=== PATIENT | female | born 1970 | race American Indian/Alaskan Native ===

== ENCOUNTER 2016-05-27 09:18 | Inpatient (IN) | payer MEDICAID ==
[2016-05-27 09:18] VITALS: BMI 45.1
--- NOTE | 2016-05-27 10:19 | ED PDOC ---
HPI: Psych/Substance Abuse Time Seen by Provider: 05/27/16 09:27 Chief Complaint (Nursing): Abdominal Pain Chief Complaint (Provider): Abd pain History/Exam Limitations: clinical condition, intoxication Current Symptoms Are (Timing): Still Present Modifying Factor(s): Other (Heroin) Additional Complaint(s): 45-year-old female, PMHx includes Hypertension (non-compliant w/ meds), brought to the emergency department by EMS with complaints of possible intoxication. Patient states she was taking the bus, and when she reached her destination, she called 911 due to nausea and non-bloody vomiting. Patient notes that she used 4 bags of Heroin last night. In ED, patient complaining of a headache frontal and generalized abdominal pain with vomiting. States she had similar pain last month, but unable to verbalize why she had it. Denies chest pain or back pain. All other Hx limited secondary to intoxication and drowsiness. Past Medical History Reviewed: Historical Data, Nursing Documentation, Vital Signs Vital Signs: Last Vital Signs Temp 98.2 F 05/27/16 09:21 Pulse 76 05/27/16 09:21 Resp 20 05/27/16 09:21 BP 184/110 H 05/27/16 09:21 Pulse Ox 100 05/27/16 09:21 - Medical History PMH: HTN (not taking meds) Denies: Depression - Family History Family History: States: Unknown Family Hx - Home Medications Home Medications: Ambulatory Orders Medication Instructions Recorded Mometasone/Formoterol [Dulera 200 2 puff IH Q12H 05/27/16 Mcg/5 Mcg Inhaler] - Allergies Allergies/Adverse Reactions: Allergies Allergy/AdvReac Type Severity Reaction Status Date / Time No Known Allergies Allergy Verified 01/29/12 10:03 Review of Systems Review Of Systems: ROS cannot be obtained secondary to pt's inabilty to answer questions. Gastrointestinal: Positive for: Nausea, Vomiting, Abdominal Pain Neurological: Positive for: Headache Physical Exam - Reviewed Nursing Documentation Reviewed: Yes Vital Signs Reviewed: Yes - Physical Exam Appears: Positive for: Uncomfortable Head Exam: Positive for: ATRAUMATIC, NORMOCEPHALIC Skin: Positive for: Warm, Dry. Negative for: Rash Eye Exam: Positive for: EOMI, PERRL ENT: Positive for: Normal ENT Inspection. Negative for: Nasal Congestion Neck: Positive for: Normal, Painless ROM, Supple Cardiovascular/Chest: Positive for: Regular Rate, Rhythm, Other (NO GROSS TRAUMA ) Respiratory: Positive for: Normal Breath Sounds. Negative for: Accessory Muscle Use Gastrointestinal/Abdominal: Positive for: Soft, Tenderness (Diffuse). Negative for: Guarding, Rebound Back: Positive for: Normal Inspection. Negative for: L CVA Tenderness, R CVA Tenderness Extremity: Positive for: Normal ROM (SPONTANEOUSLY MOVING ALL EXT). 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 RESPONSIVE TO VERBAL STIMULI AND CHEST RUB. Limited as pt. does not comply with all questions and commands.). Negative for: Motor/Sensory Deficits (4/5 STRENGTH) - Laboratory Results Result Diagrams: 05/27/16 10:36 05/27/16 10:36 Interpretation Of Abn Labs: opiates and coccaine - ECG ECG: Positive for: Interpreted By Me, Viewed By Me ECG Rhythm: Positive for: Normal QRS, Normal ST Segment, Sinus Rhythm O2 Sat by Pulse Oximetry: 100 Pulse Ox Interpretation: Normal - Radiology X-Ray: Read By Radiologist X-Ray Interpretation: No Acute Disease - CT Scan/US ct Other Rad Studies (CT/US): Read By Radiologist Other Rad Interpretation: no acute bleed - Progress ED Course And Treament: 1432: Stable. AAOx3. BP remains elevated. Possibly from coccaine use and untreated htn. Will start nicardipine considering coccaine in system. Pt. pain is better. Has no headaches. 1458: Spoke with Dr. Muñoz. CT is unclear in abd/pelvis. Recommends repeat ct with no contract to better evaluate. Spoke with ICU attending, will admit ICU for hypertensive emergency. 1506: Stable. Spoke with Dr. Amezcua. Will admit ICU. - Critical Care Total Time (In Min): 30 Documented Critical Care: Time excludes all time spent performint seperately billable procedures Medical Decision Making Medical Decision Making: Plan * VBG * CT Head * EKG * EtOH Serum, CMP, UDS, Lipase, Trop * CBC, PTT, PT * Chest X-Ray * Reglan, Zofran * POC * Reassess and Disposition Scribe Attestation: Documented by Laz Story, acting as a scribe for Tim Ortiz MD Provider Scribe Attestation: All medical record entries made by the Scribe were at my direction and personally dictated by me. I have reviewed the chart and agree that the record accurately reflects my personal performance of the history, physical exam, medical decision making, and the department course for this patient. I have also personally directed, reviewed, and agree with the discharge instructions and disposition. Disposition - Clinical Impression Clinical Impression: Hypertensive emergency, Abdominal pain, Heroin abuse, Cocaine abuse - Patient ED Disposition Is Patient to be Admitted: Yes Counseled Patient/Family Regarding: Studies Performed, Diagnosis - Disposition Disposition Time: 15:06 Condition: SERIOUS - Pt Status Changed To: Hospital Disposition Of: Inpatient - Admit Certification Admit to Inpatient:: After my assessment, the patient will require hospitalization for at least two midnights. This is because of the severity of symptoms shown, intensity of services needed, and/or the medical risk in this patient being treated as an outpatient. - POA Present On Arrival: None
[2016-05-27 10:40] LABS: BASO % 0.3 % (0.0-2.0); EOS # 0.2 K/uL (0.0-0.7); EOS % 1.6 % (0.0-4.0); HEMATOCRIT 41.5 % (34.0-47.0); LYMPH # 0.8 K/uL (1.0-4.3); LYMPH % 7.5 % (20.0-40.0); MEAN CELL VOLUME 83.1 fl (81.0-99.0); MEAN CORPUSCULAR HEMOGLOBIN 27.2 pg (27.0-31.0); MEAN CORPUSCULAR HGB CONC 32.8 g/dL (33.0-37.0); MEAN PLATELET VOLUME 9.1 fl (7.2-11.7); MONO # 0.6 K/uL (0.0-0.8); MONO % 5.6 % (0.0-10.0); PLATELET COUNT 240 K/uL (130-400); WHITE BLOOD COUNT 10.6 K/uL (4.8-10.8)
[2016-05-27 10:54] LABS: ALB/GLOB RATIO 1.1 (1.0-2.1); ALCOHOL SERUM < 10 mg/dl (0-10); ALKALINE PHOSPHATASE 97 U/L (38-126); ALT/SGPT 40 U/L (9-52); AST/SGOT 33 U/L (14-36); BILIRUBIN,TOTAL 2.2 mg/dl (0.2-1.3); BLOOD UREA NITROGEN 15 mg/dl (7-17); CALCIUM 10.1 mg/dL (8.4-10.2); CARBON DIOXIDE 25 mmol/L (22-30); CHLORIDE 104 mmol/L (98-107); GFR AFRICAN-AMERICAN > 60; GLUCOSE,RANDOM 107 mg/dL (65-105); LIPASE 31 U/L (23-300); POTASSIUM 3.9 MMOL/L (3.6-5.0); SODIUM 145 mmol/l (132-148); TOTAL PROTEIN 8.5 G/DL (6.3-8.2)
[2016-05-27 11:07] LABS: PARTIAL THROMBOPLASTIN TIME 25.7 SECONDS (23.3-32.5)
[2016-05-27 11:34] LABS: VENOUS BLOOD GAS BASE EXCESS 2.1 mmol/L (0.0-2.0); VENOUS BLOOD GAS PCO2 52 mmHg (40-60); VENOUS BLOOD PH 7.35 (7.32-7.43)
--- NOTE | 2016-05-27 11:35 | CT ---
PROCEDURE: CT HEAD WITHOUT CONTRAST. HISTORY: headache COMPARISON: None available. TECHNIQUE: Axial computed tomography images were obtained through the head/brain without intravenous contrast. Radiation dose: Total exam DLP = 845.80 mGy-cm. This CT exam was performed using one or more of the following dose reduction techniques: Automated exposure control, adjustment of the mA and/or kV according to patient size, and/or use of iterative reconstruction technique. FINDINGS: HEMORRHAGE: No intracranial hemorrhage. BRAIN: No mass effect or edema. There is generalize sulcal effacement. There is preservation of normal sargent-white matter differentiation. There is no evidence of acute infarct. There is mild cerebellar tonsillar ectopia. There is partial empty sella. These findings may be seen in association with idiopathic intracranial hypertension. Please correlate. Recommend further evaluation with magnetic resonance imaging. VENTRICLES: Mildly narrowed. No midline shift. CALVARIUM: Unremarkable. PARANASAL SINUSES: Unremarkable as visualized. No significant inflammatory changes. MASTOID AIR CELLS: Unremarkable as visualized. No inflammatory changes. OTHER FINDINGS: None. IMPRESSION: No intracranial mass. Possible idiopathic intracranial hypertension. Recommend further evaluation with magnetic resonance imaging.
[2016-05-27] MEDS ORDERED: Naloxone 0.4 mg/ml Inj (Adult) ONE (11:41)
[2016-05-27] MEDS ORDERED: Naloxone 0.4 mg/ml Inj (Adult) IVP ONE (11:43)
[2016-05-27] MEDS ORDERED: Gadodiamide 287 MG/ML VIAL (15ML) IV ONE (12:23)
[2016-05-27 12:28] LABS: EOSINOPHIL 1 % (0-7); NEUTROPHIL 83 % (42-75); REACTIVE LYMPHOCYTES 1 % (0-0); TOTAL CELLS COUNTED 100
--- NOTE | 2016-05-27 13:34 | RAD ---
HISTORY: pain COMPARISON: No prior. FINDINGS: LUNGS: No active pulmonary disease. PLEURA: No significant pleural effusion identified, no pneumothorax apparent. CARDIOVASCULAR: Normal. OSSEOUS STRUCTURES: No significant abnormalities. VISUALIZED UPPER ABDOMEN: Normal. OTHER FINDINGS: None. IMPRESSION: No active disease.
[2016-05-27] MEDS ORDERED: Iohexol 300 100 ML IJ ONE (13:40)
[2016-05-27] MEDS ORDERED: Sodium Chloride 0.9% 50 ML IV ONE (13:40)
[2016-05-27] MEDS ORDERED: Nicardipine 20 MG/200 ML 200 ML IV ONE ×2 (14:23→20:44)
--- NOTE | 2016-05-27 14:36 | CT ---
PROCEDURE: CT Abdomen and Pelvis with contrast HISTORY: abd pain COMPARISON: None. TECHNIQUE: Contrast dose: 95 cc Omnipaque 300. Radiation dose: Total exam DLP = 353.89 mGy-cm. This CT exam was performed using one or more of the following dose reduction techniques: Automated exposure control, adjustment of the mA and/or kV according to patient size, and/or use of iterative reconstruction technique. FINDINGS: LOWER THORAX: Small hiatal hernia. LIVER: Unremarkable. No gross lesion or ductal dilatation. GALLBLADDER AND BILE DUCTS: Unremarkable. PANCREAS: Unremarkable. No gross lesion or ductal dilatation. SPLEEN: Unremarkable. ADRENALS: Unremarkable. No mass. KIDNEYS AND URETERS: Atrophic right kidney. Compensatory hypertrophy left kidney. Incidental finding(s): VASCULATURE: Unremarkable. No aortic aneurysm. BOWEL: Constipation without fecal impaction or obstruction. APPENDIX: A normal appendix is not visualized. PERITONEUM: Unremarkable. No free fluid. No free air. LYMPH NODES: Retroperitoneal adenopathy. This is primarily pericaval chains. The right renal artery is displaced posteriorly and the left renal vein is draped over a retroperitoneal mass. The mass is indistinguishable from the pancreatic head. Limitations of the current examination: Absence of oral contrast and thin body habitus and a paucity of retroperitoneal fat preclude optimal assessment. BLADDER: Markedly distended urinary bladder without focal abnormality. REPRODUCTIVE: Unremarkable. BONES: No acute fracture. OTHER FINDINGS: None. IMPRESSION: Retroperitoneal adenopathy. The finding is difficult to characterize with a greater degree of clarity based on absence of oral contrast, thin body habitus. Follow-up recommendation repeat CT scan with oral and intravenous contrast Additional benign and/or incidental findings described above.
--- NOTE | 2016-05-27 15:48 | CT ---
PROCEDURE: CT Abdomen and Pelvis without intravenous contrast HISTORY: R/O stone COMPARISON: None. TECHNIQUE: Without contrast.. Contrast Dose: 0 Radiation dose: Total exam DLP = 436.76 mGy-cm. This CT exam was performed using one or more of the following dose reduction techniques: Automated exposure control, adjustment of the mA and/or kV according to patient size, and/or use of iterative reconstruction technique. Please note that this examination was performed after a delay due to the fact that prior examination was, despite proper timing, performed during the arterial phase of enhancement. This, in addition to absent oral contrast and retroperitoneal fat rendered the examination limited. An attempt at repeat examination was performed to take advantage of residual intravenous contrast. However, the contrast material appears almost entirely excreted into the urinary collecting system at the time of this repeat examination. FINDINGS: THE CURRENT EXAMINATION IS GROSSLY LIMITED. EVALUATION OF THE URINARY COLLECTING SYSTEM WITH EXCRETED CONTRAST MATERIAL DEMONSTRATES BLUNTING OF THE RIGHT RENAL CALICES. THIS IS SEEN IN CONJUNCTION WITH RIGHT RENAL ATROPHY. THERE IS A EXCRETION OF CONTRAST MATERIAL INTO THE RIGHT URETER WITHOUT EVIDENT OBSTRUCTION. THE LEFT RENAL COLLECTING SYSTEM IS UNREMARKABLE.: No significant additional information is available from the current examination due to the limitations described above. A repeat CT with intravenous and oral contrast is advised after 24 are delay following the initial contrast-enhanced CT examination. IMPRESSION: Grossly limited examination. Recommend repeat CT with intravenous and oral contrast administration following 24 hour delay.
[2016-05-27] MEDS ORDERED: Potassium Ch 20mEq in D5-1/2NS 1,000 ML IV SCH (16:00)
[2016-05-27] MEDS ORDERED: Thiamine 100 mg/ml Inj IM ONE (16:23)
[2016-05-27] MEDS ORDERED: Pneumococcal 23-Valent Vaccine IM ONE (16:54)
[2016-05-27] MEDS: Aspirin 325 mg EC Tablets PO SCH (17:23)
--- NOTE | 2016-05-27 19:47 | CON ---
DATE: 05/27/2016 LOCATION: The patient is in ICU, bed 435. TIME SPENT: Was 35 minutes. The patient is a 45-year-old female, a current cigarette smoker, history of substance abuse on cocain e and heroin with hypertension, brought to Emergency Room by EMS complaining of possible intoxication . In the Emergency Room the patient reported nausea, vomiting, pain in the abdomen and head and was noted to be drowsy. Vital signs on arrival: Temperature 98.2, heart rate 76 and regular, respirator y rate 20 thoracoabdominal, saturating 100% on room air, blood pressure 184/110. Examination of head , eyes, ear, nose and throat were unremarkable. Pupils were 2-3 mm, reactive. Noted to be lethargic , given Narcan with immediate response. A CT of the head obtained and ruled out acute intracranial h emorrhage. A CT of the abdomen showed retroperitoneal lymphadenopathy. The patient was treated with saline at 50 mL per hour, Zofran 4 mg x 2, Narcan 0.2 and 0.4 mg, metoclopramide x 2, clonidine hyd rochloride 0.2 mg x 2 and since the pressure was not under control, started her on a nicardipine drip and admitted to ICU. PAST MEDICAL HISTORY: As noted above. Further history is not obtainable as the patient is lethargic . PAST SURGICAL HISTORY: Noncontributory. MEDICATIONS: At home, are noted to be Dulera, 2 puffs twice daily. ALLERGIES: None documented. FAMILY HISTORY: Noncontributory. SOCIAL HISTORY: As noted above. PHYSICAL EXAMINATION: GENERAL: Middle-aged female, alert, awake, but lethargic, opens eyes on calling her name, goes back to sleep again. VITAL SIGNS: Showed a temperature 98.9, heart rate 77 and regular, blood pressure 168/101, oxygen sa turation 98%, respiratory rate 16 thoracoabdominal: HEAD, EYES, EARS, NOSE AND THROAT: Atraumatic, normocephalic. Pupils are 2-3 mm, reactive bilateral ly. NECK: Supple. LUNGS: Trachea central. CHEST: Bilateral breath sounds, diminished intensity. Clear to auscultation. HEART: Rhythm regular, S1, S2 normal intensity. No S3, S4 or gallop, no audible murmur. ABDOMEN: Bowel sounds present, soft. Liver and spleen not palpable. Bladder not distended. EXTREMITIES: Shows no clubbing, cyanosis, or edema. Peripheral pulses are intact, reduced in intens ity. NEUROLOGIC: Moves all 4 extremities. Deep tendon reflexes 2+. No cranial nerve deficit. No motor deficit. Sensory test was not completed due to lack of cooperation. LABORATORY DATA: Urine drug screen positive for cocaine and opiates. Alcohol level less than 10. W BC 10.6, hemoglobin 13.6, hematocrit 41.5, platelet count 240. PT , INR 1.08, PTT 25.7. VBG: pH is 7.35, lactate 1.4. SMA-7: Sodium 145, potassium 3.9, chloride 104, CO2 of 25, blood urea nitr ogen 15, creatinine 0.9, random glucose 107, calcium 10.1, total bilirubin 2.2, AST 33, ALT 40, alkal ine phosphatase 97. Troponin 0.012. Total protein 8.5, albumin 4.5, lipase 31. Urine maximo t negative. Urinalysis negative. Chest x-ray pending. ASSESSMENT AND PLAN: A 45-year-old female with: 1. A history of substance abuse, mostly cocaine and heroin, reportedly took 4 packs of heroin last n ight, now presenting with nausea, vomiting and lethargy; altered mental status secondary to substance abuse related to opiates; however, the urine drug screen is positive for cocaine . The size of the pupil is 2-3 mm suggesting more of opioid then cocaine. 2. Possible gastritis. 3. History of hypertension, now with uncontrolled hypertension, probably related to noncompliance wi th the medication and/or due to cocaine. Will monitor her mental status. Supplemental oxygen; maintain oxygen saturation more than 94, keep h ead of bed at 30 degrees elevated, aspirin 325 mg p.o. x 1. Continue nicardipine drip to maintain sy stolic pressure below 140. GI prophylaxis with Protonix. Start Lovenox 40 mg subQ for prophylaxis a nd D5 half normal with 20 of KCl at 40 mL per hour. If the patient develops tachycardia and hyperten radha, will switch her to calcium channel livan and/or nitroglycerin for better control of tachycard ia and blood pressure related to cocaine, though clinically looks more related to opiates. Terry Rutledge MD cc: 170 TT: 05/27/2016 19:46:35 Confirmation # [id number] Dictation # [id number] dn
--- NOTE | 2016-05-27 20:15 | CARD ---
APPROVED REPORT EKG Measurement Heart [id number] <Conclusion> Normal sinus rhythm with sinus arrhythmia Moderate voltage criteria for LVH, may be normal variant Borderline ECG
[2016-05-28] MEDS: Nicardipine 20 MG/200 ML 200 ML IV SCH ×2 (01:47→02:43)
[2016-05-28 05:11] LABS: HEMATOCRIT 44.4 % (34.0-47.0); MEAN CELL VOLUME 82.7 fl (81.0-99.0); MEAN CORPUSCULAR HEMOGLOBIN 26.6 pg (27.0-31.0); MEAN CORPUSCULAR HGB CONC 32.2 g/dL (33.0-37.0); RED CELL DISTRIBUTION WIDTH 13.7 % (11.5-14.5)
[2016-05-28 05:25] LABS: BLOOD UREA NITROGEN 10 mg/dl (7-17); CARBON DIOXIDE 24 mmol/L (22-30); CHLORIDE 98 mmol/L (98-107); GFR AFRICAN-AMERICAN > 60; GLUCOSE,RANDOM 142 mg/dL (65-105); POTASSIUM 3.7 MMOL/L (3.6-5.0); SODIUM 138 mmol/l (132-148)
[2016-05-28 06:46] LABS: RBC URINE 2 /hpf (0-3); URINE BILIRUBIN NEGATIVE (NEGATIVE); URINE BLOOD NEGATIVE (NEGATIVE); URINE COLOR YELLOW (YELLOW); URINE GLUCOSE (UA) NEG (Normal); URINE KETONE TRACE mg/dL (NEGATIVE); URINE LEUKOCYTE ESTERASE NEG Leu/uL (Negative); URINE PROTEIN NEGATIVE (NEGATIVE); URINE UROBILINOGEN 0.2-1.0 mg/dL (0.2-1.0); WBC URINE 1 /hpf (0-5)
[2016-05-28] MEDS: Aspirin 325 mg EC Tablets PO SCH (08:33)
[2016-05-28] MEDS: Pantoprazole 40 mg EC Tab PO SCH (08:34)
--- NOTE | 2016-05-28 14:38 | CP.CCUPN ---
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 12 H I/O's = 1323/1650ml ROS: as above, no other obtainable pertinent negs or positives on 10 system review. PMFSH: all nursing and historical notes reviewed, no new pertinent data relevant to current problems. No other distress noted: EXAM- HEENT: no icterus, pupils equal and reactive NECK: no visible JVD, supple, carotids equal upstroke bilat/no bruits CHEST: decreased BS bases, no wheezes audible HEART: regular, distant, S1S2, no murmur audible, no rubs. ABD: soft, no increased distention, no focal tenderness, no HSM. BS hypoactive , no abdominal bruits or other masses. EXT: no leg edema, no peripheral/ digital cyanosis, no calf tenderness or palpable cords, distal pulses intact and symmetrical NEURO: no gross focal motor deficits SKIN: no rashes LABS: WBC= 12.0 HGB= 14.3 PLTs= 277K Na= 138 K= 3.7 HCO3= 24 BUN/Cr= 10/0.7 BS= 142 Assessment: 1. Accelerated hypertension, 2 underlying essential HTN and heroin usage 2. Toxic encephalopathy PLAN: 1. PO medications started with Amlodipine and Enalapril. Stopped IV Nicardipine and follow BP response. BP levels remain 140/70 several hours later. 2. Repeat brain imaging pending with MRI study, initial CT study negative. 3. Stable for telemetry bed for further mgmt. and observation. No need for any invasive monitoring.
--- NOTE | 2016-05-28 22:16 | CP.PCM.HP ---
Past Patient History - Tetanus Immunizations Tetanus Immunization: Unknown - Past Social History Smoking Status: Light Smoker < 10 Cigarettes Daily - CARDIAC Hx Hypertension: Yes (not taking meds) - HEMATOLOGICAL/ONCOLOGICAL Hx AIDS: No Hx Human Immunodeficiency Virus (HIV): No - MUSCULOSKELETAL/RHEUMATOLOGICAL Hx Falls: No - PSYCHIATRIC Hx Depression: No Hx Substance Use: Yes Meds Allergies/Adverse Reactions: Allergies Allergy/AdvReac Type Severity Reaction Status Date / Time No Known Allergies Allergy Verified 01/29/12 10:03 Results - Vital Signs Recent Vital Signs: Last Vital Signs Temp 98.3 F 05/28/16 16:04 Pulse 74 05/28/16 16:04 Resp 21 05/28/16 16:04 BP 168/92 H 05/28/16 16:04 Pulse Ox 99 05/28/16 16:04 - Labs Result Diagrams: 05/28/16 04:25 05/28/16 04:25 Labs: Laboratory Results - last 24 hr 05/28/16 05/28/16 04:25 06:30 WBC 12.0 H RBC 5.37 H Hgb 14.3 Hct 44.4 MCV 82.7 MCH 26.6 L MCHC 32.2 L RDW 13.7 Plt Count 277 Sodium 138 Potassium 3.7 Chloride 98 Carbon Dioxide 24 Anion Gap 19 BUN 10 Creatinine 0.7 Est GFR ( Amer) > 60 Est GFR (Non-Af Amer) > 60 Random Glucose 142 H Calcium 10.0 Urine Color Yellow Urine Clarity Clear Urine pH 8.0 Ur Specific [place] 1.020 Urine Protein Negative Urine Glucose (UA) Neg Urine Ketones Trace Urine Blood Negative Urine Nitrate Negative Urine Bilirubin Negative Urine Urobilinogen 0.2-1.0 Ur Leukocyte Esterase Neg Urine RBC (Auto) 2 Urine Microscopic WBC 1 Ur Squamous Epith Cells 1
[2016-05-29] MEDS: Aspirin 325 mg EC Tablets PO SCH (08:35)
[2016-05-29] MEDS: Pantoprazole 40 mg EC Tab PO SCH (08:35)
--- NOTE | 2016-05-29 11:38 | CP.CCUPN ---
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 ROS: as above, no other obtainable pertinent negs or positives on 10 system review. PMFSH: all nursing and historical notes reviewed, no new pertinent data relevant to current problems. No other distress noted: EXAM- HEENT: no icterus, pupils equal and reactive NECK: no visible JVD, supple, carotids equal upstroke bilat/no bruits CHEST: decreased BS bases, no wheezes audible HEART: regular, distant, S1S2, no murmur audible, no rubs. ABD: soft, no increased distention, no focal tenderness, no HSM. BS hypoactive , no abdominal bruits or other masses. EXT: no leg edema, no peripheral/ digital cyanosis, no calf tenderness or palpable cords, distal pulses intact and symmetrical NEURO: no gross focal motor deficits SKIN: no rashes LABS: no new bloodwork orderd for today, yesterday's listed below: WBC= 12.0 HGB= 14.3 PLTs= 277K Na= 138 K= 3.7 HCO3= 24 BUN/Cr= 10/0.7 BS= 142 Assessment: 1. Accelerated hypertension, 2 underlying essential HTN and heroin usage 2. Toxic encephalopathy PLAN: 1. PO medications started with Amlodipine and Enalapril. Stopped IV Nicardipine drip. Will add PO Labetalol today. 2. Repeat brain imaging pending with MRI study, initial CT study negative. 3. Stable for telemetry bed for further mgmt. and observation. No need for any invasive monitoring.
[2016-05-29 12:03] VITALS: TEMP 98.6
[2016-05-29 13:07] VITALS: BP 133/79; PULSE 77; RESP 16; O2SAT 100
--- NOTE | 2016-05-29 17:57 | CP.PCM.DIS ---
Provider - Provider Date of Admission: 05/27/16 15:04 Attending physician: Jessi Amezcua MD Time Spent in preparation of Discharge (in minutes): 25 Hospital Course - Lab Results Lab Results: Micro Results 05/27/16 17:56 Nose MRSA Culture (Admit) - Final MRSA NOT DETECTED Most Recent Lab Values WBC 12.0 K/uL (4.8-10.8) H 05/28/16 04:25 RBC 5.37 Mil/uL (3.80-5.20) H 05/28/16 04:25 Hgb 14.3 g/dL (12.0-16.0) 05/28/16 04:25 Hct 44.4 % (34.0-47.0) 05/28/16 04:25 MCV 82.7 fl (81.0-99.0) 05/28/16 04:25 MCH 26.6 pg (27.0-31.0) L 05/28/16 04:25 MCHC 32.2 g/dL (33.0-37.0) L 05/28/16 04:25 RDW 13.7 % (11.5-14.5) 05/28/16 04:25 Plt Count 277 K/uL (130-400) 05/28/16 04:25 MPV 9.1 fl (7.2-11.7) 05/27/16 10:36 Neut % (Auto) 85.0 % (50.0-75.0) H 05/27/16 10:36 Lymph % (Auto) 7.5 % (20.0-40.0) L 05/27/16 10:36 [place] % (Auto) 5.6 % (0.0-10.0) 05/27/16 10:36 Eos % (Auto) 1.6 % (0.0-4.0) 05/27/16 10:36 Baso % (Auto) 0.3 % (0.0-2.0) 05/27/16 10:36 Neut # 9.0 K/uL (1.8-7.0) H 05/27/16 10:36 Lymph # 0.8 K/uL (1.0-4.3) L 05/27/16 10:36 [place] # 0.6 K/uL (0.0-0.8) 05/27/16 10:36 Eos # 0.2 K/uL (0.0-0.7) 05/27/16 10:36 Baso # 0.0 K/uL (0.0-0.2) 05/27/16 10:36 Neutrophils % (Manual) 83 % (42-75) H 05/27/16 10:36 Lymphocytes % (Manual) 11 % (20-50) L 05/27/16 10:36 Reactive Lymphs % 1 % (0-0) H 05/27/16 10:36 Monocytes % (Manual) 4 % (0-10) 05/27/16 10:36 Eosinophils % (Manual) 1 % (0-7) 05/27/16 10:36 Platelet Estimate Normal (NORMAL) 05/27/16 10:36 RBC Morphology Normal (NORMAL) 05/27/16 10:36 PT 11.2 SECONDS (9.6-11.2) 05/27/16 10:36 INR 1.08 (0.92-1.08) 05/27/16 10:36 APTT 25.7 SECONDS (23.3-32.5) 05/27/16 10:36 pO2 17 mm/Hg (30-55) L 05/27/16 11:25 VBG pH 7.35 (7.32-7.43) 05/27/16 11:25 VBG pCO2 52 mmHg (40-60) 05/27/16 11:25 VBG HCO3 24.5 mmol/L 05/27/16 11:25 VBG Total CO2 30.3 mmol/L (22-28) H 05/27/16 11:25 VBG O2 Sat (Calc) 28.0 % (40-65) L 05/27/16 11:25 VBG Base Excess 2.1 mmol/L (0.0-2.0) H 05/27/16 11:25 VBG Potassium 4.2 mmol/L (3.6-5.2) 05/27/16 11:25 Sodium 138.0 mmol/L (132-148) 05/27/16 11:25 Chloride 105.0 mmol/L (98-107) 05/27/16 11:25 Glucose 105 mg/dL (65-105) 05/27/16 11:25 Lactate 1.4 mmol/L (0.7-2.1) 05/27/16 11:25 FiO2 21.0 % 05/27/16 11:25 Sodium 138 mmol/l (132-148) 05/28/16 04:25 Potassium 3.7 MMOL/L (3.6-5.0) 05/28/16 04:25 Chloride 98 mmol/L (98-107) 05/28/16 04:25 Carbon Dioxide 24 mmol/L (22-30) 05/28/16 04:25 Anion Gap 19 (10-20) 05/28/16 04:25 BUN 10 mg/dl (7-17) 05/28/16 04:25 Creatinine 0.7 mg/dL (0.7-1.2) 05/28/16 04:25 Est GFR ( Amer) > 60 05/28/16 04:25 Est GFR (Non-Af Amer) > 60 05/28/16 04:25 POC Glucose (mg/dL) 84 mg/dL (65-110) 05/27/16 10:12 Random Glucose 142 mg/dL (65-105) H 05/28/16 04:25 Calcium 10.0 mg/dL (8.4-10.2) 05/28/16 04:25 Total Bilirubin 2.2 mg/dl (0.2-1.3) H 05/27/16 10:36 AST 33 U/L (14-36) 05/27/16 10:36 ALT 40 U/L (9-52) 05/27/16 10:36 Alkaline Phosphatase 97 U/L (38-126) 05/27/16 10:36 Total Creatine Kinase 204 U/L (30-135) H 05/27/16 17:00 Troponin I < 0.0120 ng/mL (0.00-0.120) 05/27/16 17:00 Total Protein 8.5 G/DL (6.3-8.2) H 05/27/16 10:36 Albumin 4.5 g/dL (3.5-5.0) 05/27/16 10:36 Globulin 4.0 gm/dL (2.2-3.9) H 05/27/16 10:36 Albumin/Globulin Ratio 1.1 (1.0-2.1) 05/27/16 10:36 Lipase 31 U/L (23-300) 05/27/16 10:36 Venous Blood Potassium 4.2 mmol/L (3.6-5.2) 05/27/16 11:25 Urine Color Yellow (YELLOW) 05/28/16 06:30 Urine Clarity Clear (Clear) 05/28/16 06:30 Urine pH 8.0 (5.0-8.0) 05/28/16 06:30 Ur Specific [place] 1.020 (1.003-1.030) 05/28/16 06:30 Urine Protein Negative mg/dL (NEGATIVE) 05/28/16 06:30 Urine Glucose (UA) Neg mg/dL (Normal) 05/28/16 06:30 Urine Ketones Trace mg/dL (NEGATIVE) 05/28/16 06:30 Urine Blood Negative (NEGATIVE) 05/28/16 06:30 Urine Nitrate Negative (NEGATIVE) 05/28/16 06:30 Urine Bilirubin Negative (NEGATIVE) 05/28/16 06:30 Urine Urobilinogen 0.2-1.0 mg/dL (0.2-1.0) 05/28/16 06:30 Ur Leukocyte Esterase Neg [place]/uL (Negative) 05/28/16 06:30 Urine RBC (Auto) 2 /hpf (0-3) 05/28/16 06:30 Urine Microscopic WBC 1 /hpf (0-5) 05/28/16 06:30 Ur Squamous Epith Cells 1 /hpf (0-5) 05/28/16 06:30 Urine Opiates Screen Positive (NEGATIVE) H 05/27/16 11:40 Urine Methadone Screen Negative (NEGATIVE) 05/27/16 11:40 Ur Barbiturates Screen Negative (NEGATIVE) 05/27/16 11:40 Ur Phencyclidine Scrn Negative (NEGATIVE) 05/27/16 11:40 Ur Amphetamines Screen Negative (NEGATIVE) 05/27/16 11:40 U Benzodiazepines Scrn Negative (NEGATIVE) 05/27/16 11:40 U Oth Cocaine Metabols Positive (NEGATIVE) H 05/27/16 11:40 U Cannabinoids Screen Negative (NEGATIVE) 05/27/16 11:40 Alcohol, Quantitative < 10 mg/dl (0-10) 05/27/16 10:36 Discharge Exam - Head Exam Head Exam: ATRAUMATIC, NORMOCEPHALIC Discharge Plan - Follow Up Plan Condition: SERIOUS Disposition: AGAINST MEDICAL ADVICE
== END 2016-05-29 13:50 | disposition left against medical advice (07) | DRG 543 ==
LOC: H.ER 09:18 → H.ERHOLD 15:04 → H.ICU/CCU 15:47
PROVIDERS: ADMIT Internal Medicine; ATTEND Internal Medicine
PROC: 3E0234Z Introduction of Serum, Toxoid and Vaccine into Muscle, Percutaneous Approach (ICD-10-PCS; principal; 2016-05-27)
DX: I16.1 Hypertensive emergency (principal); G92 Toxic encephalopathy; F11.129 Opioid abuse with intoxication, unspecified; F14.10 Cocaine abuse, uncomplicated; F17.210 Nicotine dependence, cigarettes, uncomplicated; Z23 Encounter for immunization; Z91.14 Patient's other noncompliance with medication regimen; Z79.82 Long term (current) use of aspirin

== ENCOUNTER 2018-02-27 12:45 | Emergency (ER) | payer MEDICAID ==
[2018-02-27 12:46] VITALS: BMI 45.1
[2018-02-27 12:52] VITALS: TEMP 98.3; O2SAT 97
--- NOTE | 2018-02-27 13:12 | ED PDOC ---
HPI: Altered Mental Status Time Seen by Provider: 02/27/18 12:58 Chief Complaint (Nursing): Altered Mental Status Chief Complaint (Provider): Altered Mental Status History Per: EMS History/Exam Limitations: Clinical Condition Additional Complaint(s): 47 y/o female [place] by [place] Patient is unable to provide history. PMD: None provided Past Medical History Reviewed: Historical Data, Nursing Documentation, Vital Signs Vital Signs: Last Vital Signs Temp 98.3 F 02/27/18 12:49 Pulse 69 02/27/18 12:49 Resp 16 02/27/18 12:49 BP 108/74 02/27/18 12:49 Pulse Ox 97 02/27/18 12:49 - Medical History PMH: HTN (not taking meds) Denies: Depression, HIV - Surgical History Surgical History: No Surg Hx - Family History Family History: States: Unknown Family Hx - Home Medications Home Medications: Ambulatory Orders Medication Instructions Recorded Mometasone/Formoterol [Dulera 200 2 puff IH Q12H 05/27/16 Mcg/5 Mcg Inhaler] Naloxone HCl [Narcan] 1 spray NS ONCE PRN #1 spray 02/27/18 - Allergies Allergies/Adverse Reactions: Allergies Allergy/AdvReac Type Severity Reaction Status Date / Time No Known Allergies Allergy Verified 02/27/18 12:49 Review of Systems Review Of Systems: ROS cannot be obtained secondary to pt's inabilty to answer questions. Physical Exam - Reviewed Nursing Documentation Reviewed: Yes Vital Signs Reviewed: Yes - Physical Exam Appears: Positive for: No Acute Distress Skin: Positive for: Normal Color, Warm, Dry Eye Exam: Positive for: Other (Pinpoint pupils) Cardiovascular/Chest: Positive for: Regular Rate, Rhythm. Negative for: Murmur Respiratory: Positive for: Normal Breath Sounds. Negative for: Respiratory Distress Extremity: Positive for: Normal ROM. Negative for: Pedal Edema, Deformity Neurologic/Psych: Positive for: Other (lethargic but responsive to verbal stimuli. Not answering questions) - ECG O2 Sat by Pulse Oximetry: 97 (RA) Pulse Ox Interpretation: Normal Medical Decision Making Medical Decision Making: Time: 1303 Initial Plan: --Drug screen --Urine --Urine dipstick --Urinalysis Upon reviewing old record, patient has history of opioid abuse. 18:10 Pt AAOX3, eating tray of food. Scribe Attestation: Documented by Suzi Nava, acting as a scribe for Lona Phillips MD. Provider Scribe Attestation: All medical record entries made by the Scribe were at my direction and personally dictated by me. I have reviewed the chart and agree that the record accurately reflects my personal performance of the history, physical exam, medical decision making, and the department course for this patient. I have also personally directed, reviewed, and agree with the discharge instructions and disposition. Disposition - Clinical Impression Clinical Impression: Opioid abuse - Disposition Referrals: [facility] [Outside] Disposition: Routine/Home Disposition Time: 18:14 Condition: IMPROVED Prescriptions: Naloxone HCl [Narcan] 1 spray NS ONCE PRN #1 spray PRN Reason: Opiate Reversal Instructions: Opioid Use Disorder Forms: [facility] (Lithuanian)
[2018-02-27 17:27] LABS: SQUAMOUS EPITHIAL 1 /hpf (0-5); URINE BILIRUBIN NEGATIVE (NEGATIVE); URINE BLOOD NEGATIVE (NEGATIVE); URINE CLARITY SLIGHTY-CLOUDY (Clear); URINE COLOR YELLOW (YELLOW); URINE GLUCOSE (UA) NEG (NEGATIVE); URINE HYALINE CAST 0-2 /hpf (0-2); URINE LEUKOCYTE ESTERASE NEG Leu/uL (Negative); URINE PROTEIN NEGATIVE (NEGATIVE)
[2018-02-27 17:48] LABS: BARBITURATES, UR NEGATIVE (NEGATIVE); BENZODIAZEPINES, UR NEGATIVE (NEGATIVE)
[2018-02-27 17:56] LABS: OPIATES, UR POSITIVE (NEGATIVE); PHENCYCLIDINE, UR NEGATIVE (NEGATIVE)
[2018-02-27 18:46] VITALS: BP 108/69; PULSE 78; RESP 18
== END 2018-02-27 18:49 | disposition home or self-care (01) ==
LOC: H.ER 12:45
DX: F11.10 Opioid abuse, uncomplicated (principal); I10 Essential (primary) hypertension